=== PATIENT | male | born 1990 | race African-American/Black ===

== ENCOUNTER 2020-04-17 21:20 | Emergency (ER) | payer OTHER ==
[~2020-04-17] VITALS: Ht 185.4 cm; Wt 68.0 kg
[2020-04-17 21:58] VITALS: BP 124/94
[2020-04-17] MEDS ORDERED: PENICILLIN G BENZATHINE 2.4 MMU/4 ML ML IM ONE (22:15)
[2020-04-17] MEDS: PENICILLIN G BENZATHINE 2.4 MMU/4 ML ML IM ONE (22:23)
--- NOTE | 2020-04-17 22:39 | NUR ---
Patient discharged to home in stable condition. Written and verbal after care instructions given. Patient verbalizes understanding of instruction. PT AMBULATORY W/ STEADY GAIT.
== END 2020-04-17 22:40 | disposition home or self-care (01) ==
LOC: ER 21:26
DX: Z20.2 Contact with and (suspected) exposure to infections with a predominantly sexual mode of transmission (principal)
CPT/HCPCS: 96372; 99283; J0558